=== PATIENT | female | born 2000 | race Caucasian/White ===

== ENCOUNTER 2019-10-28 15:18 | Emergency (ER) | payer SELFPAY ==
--- NOTE | 2019-10-28 15:45 | ER Document Report ---
ED Medical Screen (RME) - General Chief Complaint: Syncope Stated Complaint: POSSIBLE LOC Time Seen by Provider: 10/28/19 15:40 Mode of Arrival: Wheelchair Information source: Patient Notes: 19-year-old female with no prior history presents emergency department because she had an episode of syncope. Reports she was sitting at the kitchen table and just passed out. She denies past medical history of syncope. Denies fever vomiting diarrhea. Denies reports she is not sexually active. Denies history of seizures. Reports afterwards she went and sat on the couch and then her friends brought her to the ER. She is not sure how long she was out. Patient does not live here in [place] she is from [place]. I have greeted and performed a rapid initial assessment of this patient. A comprehensive ED assessment and evaluation of the patient, analysis of test results and completion of the medical decision making process will be conducted by additional ED providers. - Related Data Allergies/Adverse Reactions: No Known Allergies Allergy (Unverified 10/28/19 15:40) Past Medical History - Social History Chew tobacco use (# tins/day): No Frequency of alcohol use: None Drug Abuse: None Physical Exam - Vital signs Vitals: Temp Pulse Resp BP Pulse Ox 97.5 F 100 16 117/71 98 10/28/19 15:24 10/28/19 15:24 10/28/19 15:24 10/28/19 15:24 10/28/19 15:24 Course - Vital Signs Vital signs: Temp Pulse Resp BP Pulse Ox 97.5 F 100 16 117/71 98 10/28/19 15:24 10/28/19 15:24 10/28/19 15:24 10/28/19 15:24 10/28/19 15:24
[2019-10-28 16:20] LABS: ABSOLUTE EOSINOPHILS # (AUTO) 0.1 10^3/uL (0.0-0.6); ABSOLUTE LYMPHOCYTES (AUTO) 1.6 10^3/uL (0.5-4.7); ABSOLUTE MONOCYTES (AUTO) 0.6 10^3/uL (0.1-1.4); ABSOLUTE NEUT (AUTO) 12.8 10^3/uL (1.7-8.2); BASOPHILS % (AUTO) 0.2 % (0-2); EOSINOPHILS % (AUTO) 0.4 % (0-6); HEMATOCRIT 45.9 % (36.0-47.0); HEMOGLOBIN 15.8 g/dL (12.0-15.5); LYMPHOCYTES % (AUTO) 10.6 % (13-45); MEAN CORPUSCULAR HEMOGLOBIN 27.9 pg (27.0-33.4); MEAN CORPUSCULAR HGB CONC 34.5 g/dL (32.0-36.0); MEAN CORPUSCULAR VOLUME 81 fl (80-97); MONOCYTES % (AUTO) 3.8 % (3-13); PLATELET COUNT 332 10^3/uL (150-450); RED BLOOD COUNT 5.67 10^6/uL (3.72-5.28); RED CELL DISTRIBUTION WIDTH 15.1 % (11.5-14.0); TOTAL CELLS COUNTED % (AUTO) 100 %; WHITE BLOOD COUNT 15.1 10^3/uL (4.0-10.5)
[2019-10-28 16:40] LABS: ALBUMIN 5.1 g/dL (3.5-5.0); ALKALINE PHOSPHATASE 73 U/L (38-126); ANION GAP 11 (5-19); ASPARTATE AMINO TRANSFERASE 32 U/L (14-36); BILIRUBIN,DIRECT 0.1 mg/dL (0.0-0.4); BLOOD UREA NITROGEN 13 mg/dL (7-20); CALCIUM 9.9 mg/dL (8.4-10.2); CARBON DIOXIDE 24 mmol/L (22-30); CHLORIDE 103 mmol/L (98-107); GLUCOSE 156 mg/dL (75-110); POTASSIUM 4.5 mmol/L (3.6-5.0); TOTAL PROTEIN 8.6 g/dL (6.3-8.2)
[2019-10-28 18:24] VITALS: BP 126/70
[2019-10-28 18:31] LABS: APPEARANCE,URINE CLOUDY; BILIRUBIN,URINE NEGATIVE (NEGATIVE); GLUCOSE, URINE NEGATIVE (NEGATIVE); KETONES,URINE NEGATIVE (NEGATIVE); LEUKOCYTE ESTERASE,URINE TRACE (NEGATIVE); NITRITE,URINE NEGATIVE (NEGATIVE); PROTEIN,URINE 30 mg/dL (NEGATIVE); URINE SPECIFIC GRAVITY 1.026; UROBILINOGEN,URINE NEGATIVE mg/dL (<2.0)
[2019-10-28] MEDS ORDERED: NORMAL SALINE 1000 ML 1,000 ML IV ONE (18:31)
[2019-10-28 18:33] LABS: COLOR,URINE YELLOW
[2019-10-28 18:43] LABS: URINE AMPHETAMINES SCREEN NEGATIVE; URINE BARBITURATES SCREEN NEGATIVE; URINE BENZODIAZEPINES SCREEN NEGATIVE; URINE COCAINE SCREEN NEGATIVE; URINE METHADONE SCREEN NEGATIVE; URINE PHENCYCLIDINE SCREEN NEGATIVE
[2019-10-28 18:46] LABS: URINE MARIJUANA (THC) SCREEN UNCONFIRMED POSITIVE
--- NOTE | 2019-10-28 19:20 | ER Document Report ---
Doctor's Note Notes: 10/28/19 19:19 I signed up to evaluate this patient. Unfortunately, I was consulted by many APCs, then pulled into the room of an IVC patient who required immediate medical attention. I did review the note from the nurse practitioner, her vital signs, and all of her laboratory investigations. I was talking to the nurse and went back to evaluate the patient. It was at that point that it was found that the patient had eloped from the department. She did not receive IV fluids. I did not personally evaluate the patient in any way.
== END 2019-10-28 19:25 | disposition left against medical advice (07) ==
LOC: ER 15:18
DX: R55 Syncope and collapse (principal)
CPT/HCPCS: 36415; 80053; 80307; 81001; 81025; 85025; 99281